=== PATIENT | male | born 1985 | race Caucasian/White ===

== ENCOUNTER → 2024-05-01 07:02 | Outpatient (CLI) | payer OTHER, SELFPAY ==
--- NOTE | 2024-05-01 07:05 | DI.US.S_ITS ---
PROCEDURE: US ABDOMEN LIMITED INDICATIONS: RUQ PAIN TECHNIQUE: Real-time focused scanning was performed of the abdomen, with image documentation. COMPARISON: None. FINDINGS: The liver demonstrates enlarged size. The liver demonstrates generalized moderately increased echogenicity. This decreases ultrasound sensitivity for detection of hepatic masses. There is a focus of relative hypoechogenicity seen near the jhoan hepatis, without abnormal vascularity that measures 3.5 x 4.3 x 6.5 cm. No findings of gallstones or sludge are seen. The gallbladder wall is not thickened, measuring 3 mm or less. No specific pericholecystic fluid is seen. The sonographic Morris sign is negative. There is no biliary dilatation, the common bile duct measures 5 mm. The pancreas is not well seen, secondary to body habitus. IMPRESSION: Enlarged, fatty infiltrated liver. There is an area of relative hypoechogenicity along the central liver, which is nonspecific although it is most likely related to focal fatty sparing. Dictated by: Luis Olvera M.D. on 05/01/2024 at 12:50 Approved by: Luis Olvera M.D. on 05/01/2024 at 12:51
--- NOTE | 2024-05-01 07:05 | DI.MRI.S_ITS ---
PROCEDURE: MR LUMBAR SPINE WO CON INDICATIONS: LOW BACK PAIN/RLQ PAIN TECHNIQUE: Noncontrast sagittal T1 spin echo and T2 fast echo, sagittal STIR, and T2 fast spin echo through the lumbar spine. In cases with scoliosis, additional coronal T2 fast spin echo may be performed. COMPARISON: None. FINDINGS: Image quality: Excellent. Alignment and Curvature: Straightening of the normal lumbar lordosis. Bone Marrow: Small L3 vertebral body hemangioma. Marrow is of normal overall signal. No acute vertebral body compression fractures. Spinal Cord: Conus medullaris terminates at the L1 level. Visualized cord demonstrates normal signal and size. Paraspinous Soft Tissues: No paravertebral masses. T12-L1: Normal appearance. L1-L2: Normal appearance. L2-L3: Facet arthropathy and thickening of ligamentum flavum. No significant central canal or neural foraminal stenosis. L3-L4: Facet arthropathy and thickening of ligamentum flavum. No significant central canal or neural foraminal stenosis. L4-L5: Mild diffuse disc bulge. Facet arthropathy. No significant central canal or neural foraminal stenosis. L5-S1: Disc desiccation, mild disc height loss and diffuse disc bulge with small superimposed left paracentral disc protrusion. Mild facet arthropathy. No significant central canal or neural foraminal stenosis. 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 Dictated by: Gatito Tijerina M.D. on 05/01/2024 at 11:09 Approved by: Gatito Tijerina M.D. on 05/01/2024 at 11:12
== END ==
LOC: US 07:04
PROVIDERS: PCP Family Medicine; Referring Provider Family Medicine; Visit Provider Family Medicine
DX: R10.11 Right upper quadrant pain (principal); M51.360 Other intervertebral disc degeneration, lumbar region with discogenic back pain only; M47.816 Spondylosis without myelopathy or radiculopathy, lumbar region; M47.817 Spondylosis without myelopathy or radiculopathy, lumbosacral region; K76.0 Fatty (change of) liver, not elsewhere classified
CPT/HCPCS: 72148; 76705

== ENCOUNTER 2024-06-29 09:17 | Emergency (ER) | payer OTHER, SELFPAY ==
[2024-06-29] VITALS (8 sets, daily range): BP systolic 138–166; BP diastolic 87–103; PULSE 70–80; RESP 15–22; TEMP 36.9; O2SAT 96–100; BMI 34.7
--- NOTE | 2024-06-29 09:21 | ED_ITS ---
HPI - Abdominal Pain General Chief Complaint: Abdominal Pain Stated Complaint: Left abdominal pain Time Seen by Provider: 06/29/24 09:21 History of Present Illness HPI narrative: 39-year-old male with no significant past medical history comes into the ED from home for evaluation of abdominal pain, states then ongoing persistent for the past almost 2 months, states that he has seen his primary care doctor for this, has had all the tests done accept a CT scan of his abdomen, states that he already has an appointment with GI, however he states that the symptoms have persisted causing extreme anxiety. He states that he keeps looking things up on the Internet and is worried that he might be ?dying. He denies any symptoms such as headache visual disturbances chest pain shortness breath fever chills nausea vomiting or any other GI/ symptoms. Not on any blood thinners no recent travel. No known sick contacts. Related Data Previous Rx's Medication Instructions Recorded hydroxyzine HCl 10 mg tablet 10 mg PO Q8H PRN anxiety 7 days 06/29/24 #21 tabs Allergies Allergy/AdvReac Type Severity Reaction Status Date / Time No Known Drug Allergies Allergy Verified 06/29/24 09:29 Review of Systems Review of Systems Narrative: General: Denies fever, chills, weight loss HEENT: Denies headache, eye drainage, eye irritation, head trauma, sore throat, voice change Cardiovascular: Denies any chest pain, palpitations, shortness of breath, tachycardia Respiratory: Denies any shortness of breath, cough, wheeze, stridor GI/: Positive abdominal pain, denies nausea, vomiting, diarrhea, bright red blood per rectum, melanotic stools, urinary frequency, urinary retention, dysuria, hematuria MSK: Denies any joint pain, muscle pains, swelling Skin: Denies any rashes, lesions, discoloration Neuro: Denies any headache, lightheadedness, dizziness, fainting, weakness Psych: Denies SI/HI Patient History Social History Smoking Status: Unknown if ever smoked Exam Narrative Exam Narrative: General: Cooperative, comfortable, well-developed, not in acute distress HEENT: Normocephalic, atraumatic, PERRLA, normal sclera, eyelids normal, Neck: Active full range of motion, atraumatic Chest: Normal to inspection, negative crepitus, no overlying erythema ecchymosis Respiratory: Normal respiratory effort, not in acute respiratory distress, clear to auscultation bilaterally negative cough, wheeze, tachypnea, rhonchi, rales Cardiology: Regular rate rhythm negative gallop, murmur, rubs GI/: Normal to inspection, soft, nonrigid, no tenderness to palpation, exam deferred MSK: Full range of active range of motion of all 4 extremities, atraumatic Skin: No rashes lesions noted Neuro: Alert awake oriented x3, moves all 4 extremities spontaneously, cranial nerves intact, able to answer all questions appropriately follows commands appropriately Psych: Cooperative, negative suicidal or homicidal ideations Initial Vital Signs Initial Vital Signs: Vital Signs Temperature 98.4 F 06/29/24 09:18 Pulse Rate 80 06/29/24 09:18 Respiratory Rate 15 06/29/24 09:18 Blood Pressure 166/103 H 06/29/24 09:18 Pulse Oximetry 99 06/29/24 09:18 Oxygen Delivery Method Room Air 06/29/24 09:18 Course Orders Ordered: ED Orders 06/29/24 09:26 CT abdomen pelvis w con Stat 06/29/24 09:30 Complete Blood Count AUTO DIFF Stat Comprehensive Metabolic Panel Stat Lipase Stat MAG [Magnesium] Stat Discontinued Medications Famotidine (Famotidine 20 Mg/2 Ml Vial) 20 mg IV NOW ONE Stop: 06/29/24 09:27 Last Admin: 06/29/24 09:42 Dose: 20 mg Documented By: RB Lorazepam (Lorazepam 2 Mg/Ml Inj) 0.5 mg IV NOW ONE Stop: 06/29/24 09:28 Last Admin: 06/29/24 09:43 Dose: 0.5 mg Documented By: RB Vital Signs Vital signs: Vital Signs - 8 hr 06/29/24 09:18 06/29/24 09:22 06/29/24 09:24 Temperature 98.4 F Pulse Rate 80 79 Respiratory Rate 15 Blood Pressure 166/103 H Pulse Oximetry 99 100 98 Oxygen Delivery Method Room Air 06/29/24 09:24 06/29/24 09:30 06/29/24 10:00 Temperature Pulse Rate 79 80 Respiratory Rate 16 Blood Pressure 166/103 H Pulse Oximetry 97 99 Oxygen Delivery Method MDM - Abdominal Pain Differential Diagnosis Differential diagnosis: Likely abdominal pain, pancreatitis and other (Electrolyte abnormality, anxiety) Lab Data 06/29/24 09:30 06/29/24 09:30 Labs: Lab Results 06/29/24 Range/Units 09:30 WBC 10.6 (4.5-11.0) X10^3/uL RBC 5.37 (4.5-5.9) X10^6/uL Hgb 14.2 (13.5-17.5) g/dL Hct 43.7 (41-53) % MCV 81.3 (80-100) fL MCH 26.4 (26-34) PG MCHC 32.5 (30-36) % RDW 14.5 (11.6-14.8) % Plt Count 381 (150-400) X10^3/uL Neut % (Auto) 73.0 (50-75) % Lymph % (Auto) 20.1 L (25-40) % [place] % (Auto) 4.9 (3-14) % Eos % (Auto) 1.4 L (2-4) % Baso % (Auto) 0.6 (0-2) % Neut # (Auto) 7800 H (1889-6477) /uL Lymph # (Auto) 2100 (1375-8048) /uL [place] # (Auto) 500 (0-900) /uL Eos # (Auto) 100 (0-450) /uL Baso # (Auto) 100 (0-100) /uL Sodium 141 (137-145) mmol/L Potassium 4.4 (3.4-5.1) mmol/L Chloride 107 (98-107) mmol/L Carbon Dioxide 28 (22-32) mmol/L BUN 15 (9-20) mg/dL Creatinine 1.17 (0.66-1.25) mg/dL Estimated GFR > 60 (>60) mL/min BUN/Creatinine Ratio 12.8 (6-22) Glucose 109 H (70-100) mg/dL Calcium 9.6 (8.4-10.2) mg/dL Magnesium 2.2 (1.6-2.3) mg/dL Total Bilirubin 0.4 (0.2-1.3) mg/dL AST 29 (17-59) IU/L ALT 30 (<50) IU/L Alkaline Phosphatase 44 (38-126) U/L Total Protein 7.2 (6.3-8.2) g/dL Albumin 4.6 (3.5-5.0) g/dL Globulin 2.6 (1.7-4.1) g/dL Albumin/Globulin Ratio 1.8 (1.0-2.8) Lipase 370 H (23-300) U/L Imaging Data CT scan - abdomen/pelvis: Radiologist's Impression: [address] [address] [address] Scan Report Signed Patient: Lisandro Davies MR#: [id number] : 1985 Acct:[id number] Age/Sex: 39 / M Date of Service: 06/29/24 Loc: ED Accession Number: [id number] Procedure: CT abdomen pelvis w con Ordering Provider: Lalo Elizondo D.O. PROCEDURE: CT ABDOMEN PELVIS W CON INDICATIONS: LUQ pain TECHNIQUE: After the administration of intravenous contrast, axial sections acquired from the lung bases to the pubic symphysis. Coronal and sagittal reformats were performed. For radiation dose reduction, the following was used: automated exposure control, adjustment of mA and/or kV according to patient size. COMPARISON: [facility], MR, MR LUMBAR SPINE WO CON, 05/01/2024, 8:24. FINDINGS: Image quality: Diagnostic. Lower Chest: No significant findings. ABDOMEN: Liver: No solid mass. Gallbladder: No radiopaque gallstones or wall thickening. Biliary ducts: No biliary dilation. Pancreas: No ductal dilation. Spleen: Size is within normal limits. Adrenal Glands: No adrenal nodules. Kidneys and Ureters: No hydronephrosis. No solid mass. No complex renal cystic lesion which requires follow up. Stomach and Bowel: Normal colonic caliber, without significant wall thickening. Mild diverticulosis without evidence of acute diverticulitis. Peritoneum: No abnormal intraperitoneal fluid. No free air. Ventral Wall: No significant ventral hernia. Abdominal Nodes: No retroperitoneal or mesenteric adenopathy by size criteria. Vessels: Aorta and inferior vena cava are normal in size. PELVIS: Pelvic Organs: Unremarkable. Bladder: No bladder wall thickening, accounting for underdistention. Pelvic Nodes: No enlarged lymph nodes. Miscellaneous: No inguinal hernias are seen. Bones: No aggressive osseous abnormality. Small focal left paracentral disc protrusion at L5-S1, unchanged from the previous MRI.. IMPRESSION: 1. No acute abdominal process noted. 2. Mild diverticulosis. 3. Unchanged small left paracentral disc protrusion at L5-S1. MDM Narrative Medical decision making narrative: 39-year-old male without any significant past medical history comes into the ED from home for evaluation of abdominal pain, has been ongoing persistent for almost 2 months, states it is his left upper quadrant, states he is seen primary care doctor for this has had all the tests and accepted CT scan, states that it is in the process of getting approved, does have an appointment with GI, however given the prolongation of the symptoms he is worried that he might be ?dying, states that he has been looking up a lot of things on the Internet and is causing him a significant amount anxiety. Therefore he decided come into the ED for evaluation treatment. Patient had lab work imaging performed here in the emergency department which showed no acute findings. Lab work and imaging unremarkable. Most likely symptoms more associated with his anxiety. Patient was instructed to follow up with his primary care doctor and his GI doctor for continued evaluation treatment of his symptoms. Strict return precautions given he verbalized understanding of this and agrees to being discharged home with outpatient follow up Discharge Plan Departure Patient Disposition: Home Clinical Impression: Abdominal pain Instructions: DI for Abdominal Pain-Adult Activity Restrictions/Additional Instructions: Please read the discharge instructions sheet carefully and bring all papers to all doctor follow-up visits, as it may contain information that your doctor may want to see. Disease processes change and evolve, if your symptoms worsen or if you develop any new symptoms that are concerning to you please return for evaluation. Your evaluation today does not show any evidence of any life- threatening/serious illnesses requiring admission to the hospital or surgery. Please follow-up with your doctor for re-evaluation in approximately 1 day. Seek immediate medical attention for any worrisome symptoms. *If you do not have a primary care provider please contact the [facility] Resource line at [phone]. They will ask some questions about your medical history and help get you set up with a doctor in the community. Prescriptions: New hydroxyzine HCl 10 mg tablet 10 mg PO Q8H PRN (Reason: anxiety) 7 Days Qty: 21 0RF Referrals: Maribell Conde DO [Primary Care Provider] - Stand Alone Forms: Patient Portal/API/Survey
--- NOTE | 2024-06-29 09:26 | DI.CT.S_ITS ---
PROCEDURE: CT ABDOMEN PELVIS W CON INDICATIONS: LUQ pain TECHNIQUE: After the administration of intravenous contrast, axial sections acquired from the lung bases to the pubic symphysis. Coronal and sagittal reformats were performed. For radiation dose reduction, the following was used: automated exposure control, adjustment of mA and/or kV according to patient size. COMPARISON: [facility], MR, MR LUMBAR SPINE WO CON, 05/01/2024, 8:24. FINDINGS: Image quality: Diagnostic. Lower Chest: No significant findings. ABDOMEN: Liver: No solid mass. Gallbladder: No radiopaque gallstones or wall thickening. Biliary ducts: No biliary dilation. Pancreas: No ductal dilation. Spleen: Size is within normal limits. Adrenal Glands: No adrenal nodules. Kidneys and Ureters: No hydronephrosis. No solid mass. No complex renal cystic lesion which requires follow up. Stomach and Bowel: Normal colonic caliber, without significant wall thickening. Mild diverticulosis without evidence of acute diverticulitis. Peritoneum: No abnormal intraperitoneal fluid. No free air. Ventral Wall: No significant ventral hernia. Abdominal Nodes: No retroperitoneal or mesenteric adenopathy by size criteria. Vessels: Aorta and inferior vena cava are normal in size. PELVIS: Pelvic Organs: Unremarkable. Bladder: No bladder wall thickening, accounting for underdistention. Pelvic Nodes: No enlarged lymph nodes. Miscellaneous: No inguinal hernias are seen. Bones: No aggressive osseous abnormality. Small focal left paracentral disc protrusion at L5-S1, unchanged from the previous MRI.. IMPRESSION: 1. No acute abdominal process noted. 2. Mild diverticulosis. 3. Unchanged small left paracentral disc protrusion at L5-S1. Dictated by: Lavelle Salinas M.D. on 06/29/2024 at 10:11 Approved by: Lavelle Salinas M.D. on 06/29/2024 at 10:30
[2024-06-29] MEDS: FAMOTIDINE 20 MG/2 ML VIAL IV (09:42)
[2024-06-29] MEDS: LORazepam 2 MG/ML INJ 0.5 MG IV (09:43)
[2024-06-29 09:47] LABS: Add Manual Diff / Slide Review NO; Basophils Absolute Auto 100 /uL (0-100); Basophils Percent Auto 0.6 % (0-2); Eosinophils Absolute Auto 100 /uL (0-450); Eosinophils Percent Auto 1.4 % (2-4); Hematocrit 43.7 % (41-53); Hemoglobin 14.2 g/dL (13.5-17.5); Lymphocytes Absolute Auto 2100 /uL (1100-4500); Lymphocytes Percent Auto 20.1 % (25-40); Mean Corpuscular HGB Conc 32.5 % (30-36); Mean Corpuscular Hemoglobin 26.4 PG (26-34); Mean Corpuscular Volume 81.3 fL (80-100); Monocytes Absolute Auto 500 /uL (0-900); Monocytes Percent Auto 4.9 % (3-14); Neutrophils Absolute Auto 7800 /uL (1500-7000); Platelet Count 381 X10^3/uL (150-400); Red Blood Cell Count 5.37 X10^6/uL (4.5-5.9); Red Cell Distribution Width 14.5 % (11.6-14.8); White Blood Cell Count 10.6 X10^3/uL (4.5-11.0)
[2024-06-29 10:13] LABS: Alanine Aminotransferase 30 IU/L (<50); Albumin 4.6 g/dL (3.5-5.0); Albumin Globulin Ratio 1.8 (1.0-2.8); Alkaline Phosphatase 44 U/L (38-126); Aspartate Aminotransferase 29 IU/L (17-59); BUN Creatinine Ratio 12.8 (6-22); Bilirubin Total 0.4 mg/dL (0.2-1.3); Blood Urea Nitrogen 15 mg/dL (9-20); Calcium 9.6 mg/dL (8.4-10.2); Carbon Dioxide 28 mmol/L (22-32); Chloride 107 mmol/L (98-107); Estimated Glomerular Filt Rate > 60 mL/min (>60); Globulin 2.6 g/dL (1.7-4.1); Glucose 109 mg/dL (70-100); HEMOLYSIS < 15 (0-50); Lipase 370 U/L (23-300); Potassium 4.4 mmol/L (3.4-5.1); Sodium 141 mmol/L (137-145); Total Protein 7.2 g/dL (6.3-8.2)
[2024-06-29 10:14] LABS: Magnesium 2.2 mg/dL (1.6-2.3)
== END 2024-06-29 11:01 | disposition home or self-care (01) ==
PROVIDERS: Emergency Provider Student in an Organized Health Care Education/Training Program; PCP Family Medicine
DX: R10.12 Left upper quadrant pain (principal); F10.90 Alcohol use, unspecified, uncomplicated
CPT/HCPCS: 36415; 74177; 80053; 83690; 83735; 85025; 96374; 96375; 99284; J2060; Q9967

== ENCOUNTER → 2025-05-04 16:56 | Outpatient (CLI) | payer OTHER, SELFPAY ==
--- NOTE | 2025-05-04 16:57 | DI.MRI.S_ITS ---
PROCEDURE: MR SHOULDER RT WO CON INDICATIONS: Pain in shoulder TECHNIQUE: Noncontrast oblique coronal T2 fast spin echo with fat saturation, oblique sagittal T1 spin echo and T2 fast spin echo with fat saturation, axial T1 spin echo and T2 fast spin echo with fat saturation through the shoulder. COMPARISON: None. FINDINGS: Image quality: Diagnostic. Rotator cuff: Anterior supraspinatus insertional, bursal sided, near full thickness, greater than 50 percent, near full width, 15 mm, insertional tear. The tear tracks from the bursal surface to the intrasubstance tendon and extends to the far anterior margin of the infraspinatus tendon component of the conjoint tendon. No posterior infraspinatus tear. Mild strain of the articular surface of the central infraspinatus tendon. Intact subscapularis. Intact teres minor. No significant atrophy or fatty infiltration of the rotator cuff musculature. Biceps: No tendinosis or tear. The anchor is intact. Osseous structures and articular cartilage: No fracture, or suspicious marrow replacing process, or contusion. The articular cartilage is intact. Supraspinatus outlet: Mild acromioclavicular joint osteoarthritis. Moderate volume fluid in the subacromial subdeltoid bursa. No os acromiale. Intra-articular: The labrum is intact. The capsule is unremarkable. No imaging findings of adhesive capsulitis. Extra-articular: Normal deltoid. No visualized axillary lymphadenopathy. The superficial soft tissues are unremarkable. IMPRESSION: 1. Anterior supraspinatus to far anterior infraspinatus insertional bursal to intrasubstance near full-thickness, near full width tear. 2. Mild strain of the central infraspinatus tendon. 3. Intact articular cartilage. 4. No discrete labral tear. Dictated by: Mumtaz Sarabia M.D. on 05/06/2025 at 12:02 Approved by: Mumtaz Sarabia M.D. on 05/06/2025 at 12:06
== END ==
LOC: MRI 16:56
PROVIDERS: PCP Family Medicine; Referring Provider Family Medicine; Visit Provider Family Medicine
DX: M75.111 Incomplete rotator cuff tear or rupture of right shoulder, not specified as traumatic (principal); M75.41 Impingement syndrome of right shoulder; M19.011 Primary osteoarthritis, right shoulder; M25.511 Pain in right shoulder
CPT/HCPCS: 73221